=== PATIENT | female | born 1990 | race Caucasian/White ===

== ENCOUNTER 2018-05-16 08:54 | Emergency (ER) | payer MEDICAID ==
[~2018-05-16] VITALS: Ht 165.1 cm; Wt 81.0 kg
[~2018-05-16 08:54] MED LIST: HYDR-569 PO; LACT1CAP26 PO; LAMO25TA72 PO; LEVE250T PO; MAGN296S50 PO; POLY119P2 PO
[2018-05-16 09:02] VITALS: BP 114/64
[2018-05-16] MEDS ORDERED: ondansetron 4mg rapidly disintigrating tab PO ONE (09:15)
[2018-05-16 09:21] LABS: BASOPHILS % (AUTO) 0.3 % (0-1); EOSINOPHILS # (AUTO) 0.1 X10'3 (0-0.9); EOSINOPHILS % (AUTO) 1.5 % (0-6); HEMATOCRIT 39.4 % (35.0-45.0); HEMOGLOBIN 13.9 g/dl (12.0-16.0); LYMPHOCYTES % (AUTO) 29.1 % (21-51); MEAN CORPUSCULAR HEMOGLOBIN 32.5 PG (27.0-31.0); MEAN CORPUSCULAR HGB CONC 35.2 % (33.0-36.5); MEAN CORPUSCULAR VOLUME 92.3 FL (78-98); MEAN PLATELET VOLUME 8.9 FL (7.4-10.4); MONOCYTES # (AUTO) 0.4 X10'3 (0-0.9); MONOCYTES % (AUTO) 6.1 % (2-12); NEUTROPHILS # (AUTO) 4.2 X10'3 (1.8-7.7); PLATELET COUNT 235 X10'3 (140-440); RED BLOOD COUNT 4.27 X10'6 (4.20-5.60); RED CELL DISTRIBUTION WIDTH 12.8 % (11.5-14.5); WHITE BLOOD COUNT 6.7 X10'3 (4.5-11.0)
[2018-05-16 09:30] LABS: PROTHROMBIN TIME 10.8 SECONDS (9.0-12.0)
[2018-05-16 09:35] LABS: ALANINE AMINOTRANSFERASE 19 U/L (12-78); ALBUMIN 3.9 G/DL (3.4-5.0); ALBUMIN/GLOBULIN RATIO 1.1 (1.1-1.5); ALKALINE PHOSPHATASE 65 IU/L (46-116); ANION GAP 13 (8-16); ASPARTATE AMINO TRANSFERASE 21 U/L (10-37); BILIRUBIN,TOTAL 0.4 MG/DL (0.1-1.0); BLOOD UREA NITROGEN 13 MG/DL (7-18); BUN/CREATININE RATIO 16.5 (6.6-38.0); CALCIUM 9.2 MG/DL (8.5-10.1); CHLORIDE 103 MMOL/L (99-107); CREATININE 0.79 MG/DL (0.40-0.90); GLUCOSE 107 MG/DL (70-104); POTASSIUM 3.7 MMOL/L (3.5-5.1); SODIUM 138 MMOL/L (135-145); TOTAL CARBON DIOXIDE 21.6 MMOL/L (24-32); TOTAL PROTEIN 7.5 G/DL (6.4-8.2); eGFR 87 ML/MIN
[2018-05-16] MEDS ORDERED: ondansetron/PF 4mg/2ml inj IV ONE (09:55)
[2018-05-16] MEDS ORDERED: normal saline 1000ML IV soln IVB ONE (09:55)
[2018-05-16 10:57] LABS: CLARITY,URINE SLIGHTLY CLOUDY (Clear); COLOR,URINE STRAW (Yellow); GLUCOSE, URINE NEGATIVE (Neg); KETONES,URINE 15 mg/dl (Neg); LEUKOCYTE ESTERASE ,URINE NEGATIVE (Neg); NITRITES, URINE NEGATIVE (Neg); OCCULT BLOOD,URINE NEGATIVE (Neg); PH,URINE >=9.0 (4.8-8.0); PROTEIN,URINE NEGATIVE (Neg); URINE HCG NEGATIVE (NEG); UROBILINOGEN,URINE 0.2 E.U/dL (0.2-1.0)
[2018-05-16 10:58] LABS: UA COLLECTION TYPE VOIDED
[2018-05-16 11:04] LABS: MUCUS STRANDS NONE SEEN /LPF (Neg); SQUAMOUS EPITHELIAL CELL,UR MANY /LPF (FEW)
[2018-05-16 11:05] LABS: BACTERIA,URINE 2+ /HPF (Neg); RBC,URINE NONE SEEN /HPF (0-2); WBC,URINE 0-4 /HPF (0-4)
== END 2018-05-16 11:46 | disposition home or self-care (01) ==
LOC: ER 08:54
DX: R10.13 Epigastric pain (principal); R11.2 Nausea with vomiting, unspecified; F12.90 Cannabis use, unspecified, uncomplicated; F11.90 Opioid use, unspecified, uncomplicated; Z90.89 Acquired absence of other organs; Z88.0 Allergy status to penicillin; Z88.1 Allergy status to other antibiotic agents; Z79.899 Other long term (current) drug therapy
CPT/HCPCS: 36415; 80053; 81001; 81025; 85025; 85610; 93005; 96361; 96374; 99285; J2405; J7030

== ENCOUNTER 2021-06-10 17:45 | Emergency (ER) | payer MEDICAID ==
[~2021-06-10] VITALS: Ht 165.1 cm; Wt 120.5 kg
[~2021-06-10 17:45] MED LIST changes: +HYDR-4383 PO; -HYDR-569 PO; -MAGN296S50 PO; +MAGN296S70 PO
[2021-06-10] MEDS ORDERED: TETanus/Pertussis (Acell)/Diphther VAC/PF (Tdap-Adult) 0.5ml syringe IMVAC ONE (21:00)
[2021-06-10 21:37] VITALS: BP 134/67
== END 2021-06-10 21:39 | disposition home or self-care (01) ==
LOC: ER 17:46
DX: S61.211A Laceration without foreign body of left index finger without damage to nail, initial encounter (principal); F12.90 Cannabis use, unspecified, uncomplicated; F11.90 Opioid use, unspecified, uncomplicated; Z86.69 Personal history of other diseases of the nervous system and sense organs; Z86.2 Personal history of diseases of the blood and blood-forming organs and certain disorders involving the immune mechanism; Z85.41 Personal history of malignant neoplasm of cervix uteri; Z90.89 Acquired absence of other organs; Z72.89 Other problems related to lifestyle; Z88.0 Allergy status to penicillin; Z88.1 Allergy status to other antibiotic agents; Z79.899 Other long term (current) drug therapy; Z20.3 Contact with and (suspected) exposure to rabies; W26.0XXA Contact with knife, initial encounter; Y93.89 Activity, other specified; Y92.89 Other specified places as the place of occurrence of the external cause; Y99.8 Other external cause status
CPT/HCPCS: 12001; 90471; 90715; 99283

== ENCOUNTER 2024-02-16 10:50 | Emergency (ER) | payer MEDICAID ==
[~2024-02-16] VITALS: Ht 166.4 cm; Wt 106.0 kg
[~2024-02-16 10:50] MED LIST changes: -MAGN296S70 PO; +MAGN296S89 PO
[2024-02-16 11:09] VITALS: BP 119/82; PULSE 78; TEMP 97.7; O2SAT 99
[2024-02-16 12:49] LABS: STREP A SCREEN NEGATIVE (Neg)
[2024-02-16] MEDS ORDERED: PRED20TA PO (13:00)
[2024-02-16] MEDS ORDERED: LIDO15SO9 PO (13:00)
[2024-02-16] MEDS ORDERED: ketorolac trometh inj. 60 MG/2 ML VIAL IM ONE (13:05)
[2024-02-16 13:12] VITALS: RESP 16
[2024-02-16] MEDS: dexamethasone sod phosphate 10mg/ml inj PO STA (13:12)
[2024-02-16] MEDS: ketorolac tromethamine 15mg/ml inj. IM ONE (13:12)
== END 2024-02-16 13:30 | disposition home or self-care (01) ==
LOC: ER 10:51
DX: J02.9 Acute pharyngitis, unspecified (principal); F12.90 Cannabis use, unspecified, uncomplicated; Z88.1 Allergy status to other antibiotic agents; Z88.0 Allergy status to penicillin; Z79.899 Other long term (current) drug therapy
CPT/HCPCS: 87081; 87880; 96372; 99283; J1100; J1885; 87077